=== PATIENT | male | born 1980 | race Caucasian/White ===

== ENCOUNTER 2021-04-20 19:01 | Emergency (ER) | payer OTHER ==
[~2021-04-20] VITALS: Ht 172.7 cm; Wt 90.7 kg
[2021-04-20] MEDS ORDERED: LISINOPRIL20 MG PO (19:20)
[2021-04-20 20:15] VITALS: BP 148/92
== END 2021-04-20 20:17 | disposition home or self-care (01) ==
LOC: ER 19:01
DX: T16.2XXA Foreign body in left ear, initial encounter (principal); I10 Essential (primary) hypertension; Z79.899 Other long term (current) drug therapy; Z88.0 Allergy status to penicillin; X58.XXXA Exposure to other specified factors, initial encounter; Y93.89 Activity, other specified; Y92.89 Other specified places as the place of occurrence of the external cause; Y99.8 Other external cause status